=== PATIENT | female | born 1960 | race Caucasian/White ===

== ENCOUNTER → 2017-10-10 | Outpatient (CLI) | payer OTHER | LOC: M.ULTRA 09-25 12:05 | DX: I73.9 Peripheral vascular disease, unspecified (principal); E11.9 Type 2 diabetes mellitus without complications; I71.4 Abdominal aortic aneurysm, without rupture ==

== ENCOUNTER → 2020-02-10 | Outpatient (CLI) | payer OTHER ==
[~2020-02-10] MED LIST: ASA81BEC PO; B12 ACTIVE1000 MCG PO; CLONAZEPAM 0.50.5 M1 PO; D3-200050 MCG PO; FLEXERIL PO; HUMALOG100 UNIT/1 SUBQ; HYDROCODON-ACE1 EAC7 PO; IBUPROFEN 800800 M1 PO; LANTUS SOL100 UNIT/1 SUBQ; LEVO-T100 MCG PO; LIPITOR40 MG PO; METFORMIN HCL500 M3 PO; METOPROLOL SUC100 MG PO; TRADJENTA5 MG; TRIAMTERENE/HCT1 CA1 PO
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
== END ==
LOC: M.PC 10:00
PROVIDERS: ATTEND Anesthesiology Pain Medicine
DX: M54.5 Low back pain (principal); E07.9 Disorder of thyroid, unspecified; E11.9 Type 2 diabetes mellitus without complications

== ENCOUNTER → 2020-03-11 | Outpatient (CLI) | payer OTHER ==
--- NOTE | 2020-03-26 13:41 | PAINCON ---
[address] [address] PAIN MANAGEMENT CONSULTATION Name: IVORY VILLARREAL Room: [facility]#: [id number] Admission: 03/11/20 Attend Phys: Ciara Reese MD Discharge: Date of : 60 Report #: [id number] THIS REPORT FOR: //name// cc: Kiara Hinds Angela Jo RNP ~ THIS REPORT FOR: //name// CC: Kiara Reese DATE OF SERVICE: 03/11/2020 CHIEF COMPLAINT: Low back pain and pain in the right hip area. HISTORY: The patient is a 59-year-old female who has been seen in the Pain Clinic because of back pain. She has pain that radiates down into her right leg and hip. She rates her pain today as 2/10 depending on her activity. She was on an antibiotic about a week ago. She has stopped taking the antibiotic. She has been felt to have cleared her sinus infection. We will proceed with SI joint injection. ALLERGIES: TRAMADOL AND LISINOPRIL. CURRENT MEDICATIONS: 1. Aspirin 81 mg. 2. Lipitor 40 mg. 3. Vitamin D3 2000. 4. Clonazepam 0.5 mg. 5. Flexeril 10 mg. 6. Hydrochlorothiazide/triamterene 37.5/25. 7. Ibuprofen 800 mg. 8. Insulin Lantus, insulin Humalog 5 units. 9. Levothyroxine 100 mcg. 10. Tradjenta 5 mg. 11. Vitamin B12 1000 mcg. 12. Metformin 500 mg. 13. Metoprolol 100 mg. PAIN CLINIC ASSESSMENT AND PQRS: 1. The patient is not being treated for rheumatoid arthritis. She does complain of some pain in her right hip. 2. Height 5 feet 2 inches, weight 138 pounds, BMI is 25. 3. Vital signs: Blood pressure 151/72, heart rate 72, respiratory rate 16, room air saturation is 97%, and temperature 97.8. 4. Pain intensity 10. 5. Fall history: The patient has not fallen in the last 3 [place] [address] PAIN MANAGEMENT CONSULTATION Name: IVORY VILLARREAL Room: [facility]#: [id number] Admission: 03/11/20 Attend Phys: Ciara Reese MD Discharge: Date of : 60 Report #: [id number] 6. Blood thinner. The patient is not on a blood thinning medication. 7. Hypertension. The patient is being treated for hypertension. 8. Opioids greater than 6 weeks. The patient is not on an opioid regimen. 9. Risk assessment tool, low for opioid use. 10. Functional assessment tool reviewed. 11. Recreational drug use. The patient denies. 12. Tobacco: The patient smokes 1 pack of cigarettes per day and has smoked for the last 20 years. 13. Alcohol. The patient denies frequent use of alcoholic beverages. PHYSICAL EXAMINATION: GENERAL: The patient is a well-developed, well-nourished white female. Appears her stated age. She is alert and oriented x 3. Her affect is appropriate. Speech is fluent. HEENT: Normocephalic, atraumatic. Extraocular eye muscles intact. Sclerae nonicteric. Mucous membranes are moist. EXTREMITIES: Upper extremity muscle strength judged to be 5/5 for the major muscle groups in the upper extremity. The patient does complain of some pain in the lower portion of her back. Has some discomfort that radiates into the right hip. Upper extremity muscle strength judged to be 5/5 for the major muscle groups in the upper extremity. HEART: Heart rate regular. ABDOMEN: Nontender. IMPRESSION: 1. Low back pain with history of spinal stenosis in the L4-L5 area. 2. A 0.8 cm AP thecal sac. 3. Thyroid disease. 4. Diabetes. 5. Sacroiliac joint dysfunction. The patient has a positive Gabriel sign. RECOMMENDATIONS: We discussed treatment options with the patient. Risks and benefits of an SI joint injection were discussed. At this point, the patient has stopped taking the antibiotic. We will proceed with SI joint injection. The patient was taken to the procedure area. We have discussed the risks and benefits of an SI joint injection. They include but are not limited to infection, worsening of pain, no improvement in pain, nerve damage, and numbness as a result of placement of local anesthetic during the procedure. The patient elects to proceed. PROCEDURE NOTE: The patient was taken to the procedure area. She was then assisted in getting on the examination table. Her back was sterilely prepped with a Betadine solution. The right SI joint area was visualized with using fluoroscopy. A 0.25% bupivacaine was used to anesthetize the skin. A 20-gauge spinal needle was then advanced into the SI joint area. Contrast material 180 mg was injected. Appropriate spread was noted. A total [place] [address] [place] [address] PAIN MANAGEMENT CONSULTATION Name: IVORY VILLARREAL Room: [facility]#: [id number] Admission: 03/11/20 Attend Phys: Ciara Reese MD Discharge: Date of : 60 Report #: [id number] Depo-Medrol and 4 mL of 0.5% bupivacaine was injected. The patient tolerated the procedure well. She remained in the Pain Clinic for an appropriate amount of time. She will follow up in the future as needed. We would like to thank you for letting us participate in her care. We hope she continues to improve. A script for hydrocodone had been given at the last visit to help control the pain. <ELECTRONICALLY SIGNED> By: Ciara Reese MD 03/26/20 1341 [id number]. Alden Reese MD /nt
== END | disposition home or self-care (01) ==
LOC: M.PC 03-02 12:50
PROVIDERS: ATTEND Anesthesiology Pain Medicine
DX: M54.5 Low back pain (principal); M53.3 Sacrococcygeal disorders, not elsewhere classified; I10 Essential (primary) hypertension; E11.9 Type 2 diabetes mellitus without complications; Z79.82 Long term (current) use of aspirin; Z79.899 Other long term (current) drug therapy; Z79.84 Long term (current) use of oral hypoglycemic drugs; Z98.890 Other specified postprocedural states